=== PATIENT | male | born 1965 | race Two or more races ===

== ENCOUNTER → 2025-02-05 | Outpatient (CLI) | payer MEDICAID, SELFPAY ==
--- NOTE | 2025-02-05 09:20 | ECHO_ITS ---
Patient Info Name: Raf Palacios Age: 59 years : 1965 Gender: Male Ht: 173 cm Wt: 70 kg BSA: 1.84 m2 BP: 145 / 88 mmHg HR: 60 bpm Exam Date: 02/05/2025 9:31 AM Admit Date: 02/05/2025 Site: [facility] Room Number: ECHO Patient Status: O Technical Quality: Good Exam Type: CA echo doppler complete Sales Promotion Officer: Niesha Finley Ordering Physician: Hipolito Hurt Referring Physician: Hipolito Hurt Study Info Indications CARDIAC MURMUR, UNSPECIFIED - Primary Location: [facility] Left Ventricular Outflow Tract Name Value Normal LVOT 2D LVOT Diameter 1.9 cm LVOT Doppler LVOT Peak Velocity 161 cm/s LVOT Mean Gradient 6 mmHg LVOT VTI 34 cm LVOT VTI/AV VTI Ratio 0.5 LVOT Stroke Volume 95 ml Pulmonic Valve Name Value Normal PV Doppler PV Peak Velocity 156 cm/s Mitral Valve Name Value Normal MV Doppler MV Decel [place] 551 cm/s2 MV PHT 43 ms MV Area (PHT) 5.1 cm2 4.0-5.0 MV Diastolic Function MV E Peak Velocity 82 cm/s MV A Peak Velocity 83 cm/s MV E/A 1.0 Tricuspid Valve Name Value Normal TV Regurgitation Doppler TR Peak Velocity 276 cm/s Estimated PAP/RSVP RA Pressure 3 mmHg <=5 PA Systolic Pressure 33 mmHg <36 RV Systolic Pressure 33 mmHg <36 TV Annular TDI TV Lateral Ilene s' Velocity 11.5 cm/s >=9.5 Aortic Valve Name Value Normal AV 2D/MM AV Cusp Sep (MM) 0.7 cm AV Doppler AV Peak Velocity 334 cm/s AV Mean Gradient 24 mmHg AV VTI 73 cm AV Area (Cont Eq VTI) 1.3 cm2 >=3.0 AV Area (Cont Eq Cruz) 1.4 cm2 AV DI (Cruz) 0.48 AV Regurgitation 2D LVOT Area 2.8 cm2 AV Regurgitation Doppler AR Decel [place] 138 cm/s2 AR PHT 722 ms Ventricles Name Value Normal LV Dimensions 2D/MM IVS Diastolic Thickness (2D) 0.8 cm 0.6-1.0 LVID Diastole (2D) 4.5 cm 4.2-5.8 LVIW Diastolic Thickness (2D) 0.9 cm 0.6-1.0 LVID Systole (2D) 2.8 cm 2.5-4.0 LVOT Diameter 1.9 cm LV Mass (2D Cubed) 123.07 g 88.00-224.00 LV Mass Index (2D Cubed) 67 g/m2 49-115 Relative Wall Thickness (2D) 0.40 <=0.42 IVS/LVIW Diastolic Thickness (2D) 0.89 0.00-1.50 LV Fractional Shortening/Ejection Fraction 2D/MM LV Fractional Shortening (2D) 38 % 25-43 LV EF (2D Teichholz) 68 % RV Dimensions 2D/MM TV Lateral Ilene s' Velocity 11.5 cm/s >=9.5 Atria Name Value Normal LA Dimensions LA Volume (4C A-L) 39 ml LA Volume (BP A-L) 43 ml Left Ventricle Left ventricular chamber dimension is normal. Left ventricular systolic function is normal with visually estimated ejection fraction of 55-60%. There is normal geometry noted in the left ventricle. Left ventricular segmental wall motion is normal. There is normal diastolic function in the left ventricle. Right Ventricle Right ventricular chamber dimension is normal. Right ventricular systolic function is normal. Left Atrium Left atrial chamber dimension is normal. Right Atrium Right atrial chamber dimension is normal. Aortic Valve The aortic valve is trileaflet. There is mild aortic valve sclerosis. There is mild to moderate aortic valve stenosis with a peak velocity of 334 cm/s, mean gradient of 24 mmHg, and aortic valve area of 1.3 cm2. There is mild aortic valve regurgitation. Aortic valve cusp seperation is normal with high veocity posible supravalvular stenosis. Pulmonic Valve The pulmonic valve is normal. There is no pulmonic valve stenosis. There is trace pulmonic regurgitation. Mitral Valve The mitral valve has thickened leaflets. There is no mitral valve stenosis. There is mild mitral valve regurgitation. Tricuspid Valve The tricuspid valve leaflets are normal. There is no tricuspid valve stenosis. There is mild tricuspid valve regurgitation. Mild pulmonary hypertension, estimated pulmonary arterial systolic pressure is 33 mmHg and systemic blood pressure of 145 mmHg in systole. Pericardium/Pleural The pericardium appears normal. There is no pericardial effusion. No pleural effusion visualized. Inferior Vena Cava Normal inferior vena cava with >50% collapse upon inspiration consistent with normal right atrial pressure, 3 mmHg. Aorta The aortic measurements are indexed to age and body surface area. The aortic root at the sinus of Valsalva is not well visualized. The prox ascending aorta is not well visualized. Summary 1. Left ventricle size is normal and systolic function is normal. Estimated ejection fraction is 55-60%. There is normal diastolic function. 2. Right ventricle chamber size is normal and systolic function is normal. Estimated RVSP is 33 mmHg. Mild HTN. 3. There is mild aortic valve sclerosis with mild aortic regurgitaion. Aortic velocity 3.3 mm/sec with normal aortic valve seperation and normal LVOT velocity suggestive of supravalvular stenosis. 4. There is mild mitral valve regurgitation. 5. There is mild tricuspid valve regurgitation. 6. trace pulmonic valve regurgitation. 7. Normal IVC with estimated RA pressure 3 mmHg. Report Signatures Finalized by Des Grimm on 02/06/2025 01:21 PM
== END | disposition home or self-care (01) ==
LOC: SDIM 08:52
PROVIDERS: PCP Physician Assistant; Referring Provider Physician Assistant; Visit Provider Physician Assistant
DX: I08.1 Rheumatic disorders of both mitral and tricuspid valves (principal); I35.8 Other nonrheumatic aortic valve disorders; I10 Essential (primary) hypertension
CPT/HCPCS: 93306